=== PATIENT | male | born 1995 | race Caucasian/White ===

== ENCOUNTER 2016-10-28 15:54 | Emergency (ER) | payer OTHER ==
[~2016-10-28] VITALS: Ht 175.3 cm; Wt 64.9 kg
[2016-10-28 16:22] VITALS: BP 122/79
--- NOTE | 2016-10-28 19:46 | NUR ---
TO ER BED 2
--- NOTE | 2016-10-28 20:00 | NUR ---
PT IS 21Y/M C/O SCROTAL PAIN X 3 DAYS---DENIES INJURY ,NO BLOOD IN URINE/SEMEN NO SWELLING, NO DISCOLORATION NOTED
--- NOTE | 2016-10-28 20:40 | NUR ---
Patient being evaluated by DR. VEGA at bedside.
--- NOTE | 2016-10-28 20:55 | NUR ---
Patient discharged with v/s stable. Written and verbal after care instructions given and explained. Patient alert, oriented and verbalized understanding of instructions. Ambulatory with steady gait. All questions addressed prior to discharge. ID band removed. Patient advised to follow up with PMD. Rx of NORCO 5MG-325MG PO given. Patient educated on indication of medication including possible reaction and side effects. Opportunity to ask questions provided and answered.
[2016-10-28 20:57] VITALS: BP 115/71
== END 2016-10-28 20:55 | disposition home or self-care (01) ==
LOC: MED 15:54
DX: N50.812 Left testicular pain (principal)